=== PATIENT | male | born 1960 | race Caucasian/White ===

== ENCOUNTER 2021-07-05 08:04 | Observation (INO) | payer BC ==
[2021-07-05] MEDS ORDERED: NA CHLORIDE 0.9% 1,000 ML ONE (08:24)
[2021-07-05] MEDS ORDERED: ASPIRIN EC 81 MG TAB PO ONE (08:24)
[2021-07-05] MEDS ORDERED: LABETALOL HCL 100 MG/20 ML ONE (08:24)
[2021-07-05 08:28] LABS: Urine Blood Negative (Negative); Urine Glucose Negative (Negative); Urine Protein Negative (Negative); Urine Specific Gravity 1.015 (1.005-1.030)
[2021-07-05 08:28] LABS: Absolute Lymphocytes (CBC) 1.7 K/uL (0.7-4.9); Hematocrit 47.7 % (39.6-49.0); MPV 7.4 fL (7.6-11.3); RBC Red Blood Cell Count 5.17 M/uL (4.33-5.43)
[2021-07-05 08:35] LABS: Protime INR 0.99
--- NOTE | 2021-07-05 08:43 | RAD REPORT ---
EXAM DESCRIPTION: CT - Ct Stroke Brain Wo Cont - 07/05/2021 8:35 am CLINICAL HISTORY: NUMBNESS Headache, drowsiness, CVA symptomology COMPARISON: No comparisons TECHNIQUE: All CT scans are performed using dose optimization technique as appropriate and may inclu de automated exposure control or mA/KV adjustment according to patient size. FINDINGS: No intracranial hemorrhage, hydrocephalus or extra-axial fluid collection.No areas of brai n edema or evidence of midline shift. Beam hardening artifact from metallic foreign body along the le ft scalp noted. The paranasal sinuses and mastoids are clear. The calvarium is intact. IMPRESSION: No acute intracranial abnormality. The findings were discussed with Elicia in the ER on 07/05/2021 at 8:08 a.m. by telephone.
[2021-07-05 08:45] LABS: Magnesium 2.4 mg/dL (1.8-2.4); Potassium 3.9 mmol/L (3.5-5.1)
--- NOTE | 2021-07-05 09:21 | RAD REPORT ---
EXAM DESCRIPTION: RAD - Chest Single View - 07/05/2021 9:07 am CLINICAL HISTORY: BLUNT CHEST TRAUMA Chest pain. COMPARISON: No comparisons FINDINGS: Portable technique limits examination quality. The lungs are grossly clear. The heart is normal in size. No displaced fractures. IMPRESSION: No acute intrathoracic process suspected.
[2021-07-05 09:37] LABS: Barbiturates NEGATIVE (NEGATIVE); Benzodiazepines NEGATIVE (NEGATIVE); Cocaine NEGATIVE (NEGATIVE); METHAMPHETAM NEGATIVE (NEGATIVE); Methadone NEGATIVE (NEGATIVE); Opiates NEGATIVE (NEGATIVE); Phencyclidine NEGATIVE (NEGATIVE); THC Cannibis NEGATIVE (NEGATIVE)
--- NOTE | 2021-07-05 10:33 | ER ---
Nurse's Notes [facility] Name: Eagle Quinones Age: 61 yrs Sex: Male : 1960 Arrival Date: 07/05/2021 Time: 08:04 Bed 8 Private MD: Diagnosis: Transient cerebral ischemic attack, unspecified Presentation: 07/05 08:00 Chief complaint: EMS states: EMS called for L sided numbness, pt reports that at approx ph 0700 his L arm and L leg began to feel numb, no other deficits reported or noted, hx of HTN, BP 163/111 for EMS other VS WNL, BGL 89. Pt taken directly to CT upon arrival. Coronavirus screen: Vaccine status: Patient reports receiving the 2nd dose of the covid vaccine. At this time, the client does not indicate any symptoms associated with coronavirus-19. Ebola Screen: No symptoms or risks identified at this time. Initial Sepsis Screen: Does the patient meet any 2 criteria? No. Patient's initial sepsis screen is negative. Does the patient have a suspected source of infection? No. Patient's initial sepsis screen is negative. Risk Assessment: Do you want to hurt yourself or someone else? Patient reports no desire to harm self or others. Onset of symptoms was July 05, 2021. 08:00 Method Of Arrival: EMS: [facility] ph 08:00 Acuity: UMER 2 ph 08:17 No acute neurological deficit is noted. The patients blood glucose was checked before ph arriving to the hospital and was found to be normal. Triage Assessment: 08:38 General: Appears in no apparent distress. comfortable, Behavior is calm, cooperative, kd3 appropriate for age. 08:38 Neuro: Reports numbness since this morning. kd3 11:34 The onset of the patients symptoms was July 05, 2021 at 07:00. ph Stroke Activation: Symptom onset < 3 hours Physician: Stroke Attending; Name: ; Notified At: 07:58; Arrived At: Physician: Chief Stroke Resident; Name: ; Notified At: 07:58; Arrived At: Physician: Stroke Resident; Name: ; Notified At: 07:58; Arrived At: Physician: ED Attending; Name: Carlota; Notified At: 07:58; Arrived At: 07:58 Physician: ED Resident; Name: ; Notified At: 07:58; Arrived At: Historical: - Allergies: 08:15 No Known Allergies; ph - Home Meds: 08:15 unknown BP medication [Active]; ph - PMHx: 08:15 Hypertensive disorder; ph - Immunization history:: Client reports receiving the 2nd dose of the Covid vaccine. - Social history:: Smoking status: Patient reports the use of cigarette tobacco products, smokes one pack cigarettes per day. Screenin:18 Abuse screen: Denies threats or abuse. Denies injuries from another. Nutritional ph screening: No deficits noted. Tuberculosis screening: No symptoms or risk factors identified. Fall Risk None identified. Assessment: 08:16 Reassessment: Dr Van at bedside to assess pt, BGL 116. ph 08:33 Pain: Denies pain. Neuro: No deficits noted. Level of Consciousness is awake, alert, kd3 obeys commands, Oriented to person, place, time, situation, Hotbed Operator are equal bilaterally Moves all extremities. Gait is steady, Speech is normal, Facial symmetry appears normal, Facial symmetry: tongue is midline, Pupils are PERRLA, Intact Tingling in right hand, right foot, right arm and right leg. Cardiovascular: Patient's skin is warm and dry. Respiratory: Airway is patent Trachea midline Respiratory effort is even, unlabored. 08:35 VAN Scoring: Arm Drift: Patients demonstrates NO arm weakness. Patient is VAN Negative. ww Visual Disturbance: No visual disturbance noted. Aphasia: No aphasia noted. Neglect: No neglect noted. Patient has been NPO before screening. The patient is alert, and able to follow commands. The patient does not exhibit slurred or garbled speech. The patient is not exhibiting difficulty speaking. The patient does not exhibit difficulty understanding words. The patient is able to swallow own secretions with no drooling or need for suction. Patient tolerated one teaspoon of water. No drooling, immediate coughing, gurgling, or clearing of the throat was noted. The patient tolerated 90mL of water. No drooling, immediate coughing, gurgling, or clearing of the throat was noted. The patient passed the bedside swallow screening. Oral medications may be given as ordered. Contact Physician for further diet orders. Provider notified of bedside swallow screening results: Awilda Van MD. 08:45 Reassessment: No TPA per ER MD . 08:45 T-PA (Activase) Screening: Indications: No evidence of intracranial hemorrhage or CT of ww head and no evidence of peripheral hemorrhage or recent CVA: No. 09:32 Reassessment: Patient appears in no apparent distress at this time. Patient and/or ph family updated on plan of care and expected duration. Pain level reassessed. Patient is alert, oriented x 3, equal unlabored respirations, skin warm/dry/pink. 10:13 Reassessment: Patient appears in no apparent distress at this time. Patient and/or ph family updated on plan of care and expected duration. Pain level reassessed. Patient is alert, oriented x 3, equal unlabored respirations, skin warm/dry/pink. Dr Van at bedside to speak w/ about results, pt to be admitted for observation. 11:31 Reassessment: Patient appears in no apparent distress at this time. Patient and/or ph family updated on plan of care and expected duration. Pain level reassessed. Patient is alert, oriented x 3, equal unlabored respirations, skin warm/dry/pink. Pt resting quietly w/ eyes closed, awaiting room assignment. 16:18 Reassessment: Patient appears in no apparent distress at this time. Patient and/or ph family updated on plan of care and expected duration. Pain level reassessed. Patient is alert, oriented x 3, equal unlabored respirations, skin warm/dry/pink. Vital Signs: 08:00 BP 152 / 120; Pulse 87; Resp 20; Temp 98.4; Pulse Ox 97% on R/A; Weight 95.25 kg; ph Height 5 ft. 11 in. (180.34 cm); Pain 0/10; 08:30 BP 137 / 104; Pulse 81; Resp 18; Pulse Ox 96% on R/A; ph 08:38 BP 133 / 95; Pulse 82; Resp 14; Pulse Ox 97% on R/A; ww 09:31 BP 140 / 95; Pulse 92; Resp 18; Pulse Ox 96% on R/A; ph 10:17 BP 146 / 94; Pulse 83; Resp 16; Pulse Ox 98% on R/A; kd3 11:32 BP 135 / 90; Pulse 54; Resp 18; Pulse Ox 98% on R/A; ph 13:00 BP 129 / 93; Pulse 80; Resp 16; Pulse Ox 98% on R/A; ph 14:00 BP 104 / 81; Pulse 82; Resp 16; Pulse Ox 99% on R/A; ph 15:00 BP 146 / 68; Pulse 79; Resp 18; Pulse Ox 97% on R/A; ph 16:18 BP 138 / 100; Pulse 74; Resp 16; Temp 97.8; Pulse Ox 97% ; ph 08:00 Body Mass Index 29.29 (95.25 kg, 180.34 cm) ph Navi Coma Score: 08:15 Eye Response: spontaneous(4). Verbal Response: oriented(5). Motor Response: obeys ww commands(6). Total: 15. 08:15 Eye Response: spontaneous(4). Verbal Response: oriented(5). Motor Response: obeys ww commands(6). Total: 15. 09:31 Eye Response: spontaneous(4). Verbal Response: oriented(5). Motor Response: obeys ph commands(6). Total: 15. 11:32 Eye Response: spontaneous(4). Verbal Response: oriented(5). Motor Response: obeys ph commands(6). Total: 15. 15:00 Eye Response: spontaneous(4). Verbal Response: oriented(5). Motor Response: obeys ph commands(6). Total: 15. 16:18 Eye Response: spontaneous(4). Verbal Response: oriented(5). Motor Response: obeys ph commands(6). Total: 15. NIH Stroke Scale Scores: 08:33 NIHSS Score: 0 kd3 08:33 NIHSS Score: 0 kd3 ED Course: 08:04 Patient arrived in ED. ph 08:11 Awilda Van MD is Attending Physician. ma2 08:12 Agatha Walters RN is Primary Nurse. ph 08:15 Triage completed. ph 08:16 Arm band placed on Patient placed in an exam room, on a stretcher. ph 08:33 Patient has correct armband on for positive identification. Bed in low position. Call kd3 light in reach. Side rails up X2. unarmed security guard on. Pulse ox on. NIBP on. 08:33 Inserted saline lock: 20 gauge in right antecubital area, using aseptic technique. kd3 08:34 CT Stroke Brain w/o Contrast In Process Unspecified. EDMS 08:55 Basic Metabolic Panel Sent. ww 08:55 CBC with Diff Sent. ww 08:55 Lipase Sent. ww 09:07 Stroke CXR 1 View In Process Unspecified. EDMS 10:33 Chris Karimi is Hospitalizing Provider[facility] 11:34 No provider procedures requiring assistance completed. Patient admitted, IV remains in ph place. Administered Medications: 08:31 Drug: NS 0.9% 1000 ml Route: IV; Rate: 1 bolus; Site: right antecubital; kd3 10:00 Follow up: Response: No adverse reaction; IV Status: Completed infusion; IV Intake: ph 1000ml 08:31 Drug: Aspirin Chewable Tablet 324 mg Route: PO; kd3 11:33 Follow up: Response: No adverse reaction ph 08:31 Drug: Labetalol 10 mg Route: IVP; Infused Over: 2 mins; Site: right antecubital; kd3 09:00 Follow up: Response: No adverse reaction; Blood pressure is lowered ph Point of Care Testing: Blood Glucose: 08:14 Blood Glucose: 116 mg/dL; ph Ranges: Intake: 10:00 IV: 1000ml; Total: 1000ml. ph Outcome: 10:33 Decision to Hospitalize by Provider. [facility] 18:18 Admitted to Med/surg accompanied by tech, via wheelchair. 18:18 Condition: stable 18:18 Instructed on the need for admit. 18:19 Patient left the ED. NIH Stroke Scale - NIH Stroke Score Date: 07/05/2021 Time: 08:33 Total Score = 0 1a. Level of Consciousness (LOC) - 0(Alert) 1b. Level of Consciousness (LOC) (Month \T\ Age) - 0(Both) 1c. LOC Commands (Open \T\ Closes Eyes/Deputy Sheriff Custody) - 0(Both) 2. Best Gaze (Lateral Gaze Paresis) - 0(Normal) 3. Visual Field Loss - 0(No visual loss) 4. Facial Palsy - 0(Normal) 5a. Left Arm: Motor (10-second hold) - 0(No drift) 5b. Right Arm: Motor (10-second hold) - 0(No drift) 6a. Left Leg: Motor (5-second hold - always test supine) - 0(No drift) 6b. Right Leg: Motor (5-second hold - always test supine) - 0(No drift) 7. Limb Ataxia (finger/nose \T\ heel/jarvis - test with eyes open) - 0(Absent) 8. Sensory Loss (pinprick arms/legs/face) - 0(Normal) 9. Best Language: Aphasia (description/naming/reading) - 0(No aphasia) 10. Dysarthria (speech clarity - read or repeat words) - 0(Normal) 11. Extinction and Inattention (visual/tactile/auditory/spatial/personal) - 0(No abnormality) Initials: kd3 NIH Stroke Scale - NIH Stroke Score Date: 07/05/2021 Time: 08:33 Total Score = 0 1a. Level of Consciousness (LOC) - 0(Alert) 1b. Level of Consciousness (LOC) (Month \T\ Age) - 0(Both) 1c. LOC Commands (Open \T\ Closes Eyes/Deputy Sheriff Custody) - 0(Both) 2. Best Gaze (Lateral Gaze Paresis) - 0(Normal) 3. Visual Field Loss - 0(No visual loss) 4. Facial Palsy - 0(Normal) 5a. Left Arm: Motor (10-second hold) - 0(No drift) 5b. Right Arm: Motor (10-second hold) - 0(No drift) 6a. Left Leg: Motor (5-second hold - always test supine) - 0(No drift) 6b. Right Leg: Motor (5-second hold - always test supine) - 0(No drift) 7. Limb Ataxia (finger/nose \T\ heel/jarvis - test with eyes open) - 0(Absent) 8. Sensory Loss (pinprick arms/legs/face) - 0(Normal) 9. Best Language: Aphasia (description/naming/reading) - 0(No aphasia) 10. Dysarthria (speech clarity - read or repeat words) - 0(Normal) 11. Extinction and Inattention (visual/tactile/auditory/spatial/personal) - 0(No abnormality) Initials: kd3 Signatures: Dispatcher [employer] Agatha Penn RN RN Awilda Van MD MD wy2 Brittany Hughes RN RN 3 Freda Pino RN RN ww Corrections: (The following items were deleted from the chart) 08:16 08:15 PMHx: None; ph ph
--- NOTE | 2021-07-05 10:34 | EDPHYS ---
Physician Documentation [facility] Name: Eagle Quinones Age: 61 yrs Sex: Male : 1960 Arrival Date: 07/05/2021 Time: 08:04 Bed 8 Private MD: ED Physician Awilda Van HPI: 07/05 09:07 This 61 yrs old Male presents to ER via EMS with complaints of Numbness Of Arm. ma2 09:07 Onset: The symptoms/episode began/occurred suddenly, 1 hour(s) ago. Associated signs ma2 and symptoms: Pertinent negatives: erythema, nausea, pain, tingling. Severity of symptoms: At their worst the symptoms were very mild, in the emergency department the symptoms have resolved. 7-year-old male, history of hypertension, has not been taking his blood pressure medicine for a few days, he presents to ER for left-sided numbness involve left hand and left thigh, started an hour ago, mild, resolved completely, patient does not have any symptom at this time. Never had a stroke before.. Historical: - Allergies: 08:15 No Known Allergies; ph - Home Meds: 08:15 unknown BP medication [Active]; ph - PMHx: 08:15 Hypertensive disorder; ph - Immunization history:: Client reports receiving the 2nd dose of the Covid vaccine. - Social history:: Smoking status: Patient reports the use of cigarette tobacco products, smokes one pack cigarettes per day. ROS: 09:07 Constitutional: Negative for fever, chills, and weight loss. ma2 09:07 All other systems are negative. Exam: 09:07 Constitutional: This is a well developed, well nourished patient who is awake, alert, ma2 and in no acute distress. Chest/axilla: Normal chest wall appearance and motion. Nontender with no deformity. No lesions are appreciated. Cardiovascular: Regular rate and rhythm with a normal S1 and S2. No gallops, murmurs, or rubs. Normal PMI, no JVD. No pulse deficits. Respiratory: Lungs have equal breath sounds bilaterally, clear to auscultation and percussion. No rales, rhonchi or wheezes noted. No increased work of breathing, no retractions or nasal flaring. Abdomen/GI: Soft, non-tender, with normal bowel sounds. No distension or tympany. No guarding or rebound. No evidence of tenderness throughout. Skin: Warm, dry with normal turgor. Normal color with no rashes, no lesions, and no evidence of cellulitis. MS/ Extremity: Pulses equal, no cyanosis. Neurovascular intact. Full, normal range of motion. Neuro: Awake and alert, GCS 15, oriented to person, place, time, and situation. Cranial nerves II-XII grossly intact. Motor strength 5/5 in all extremities. Sensory grossly intact. Cerebellar exam normal. Normal gait. Vital Signs: 08:00 BP 152 / 120; Pulse 87; Resp 20; Temp 98.4; Pulse Ox 97% on R/A; Weight 95.25 kg; ph Height 5 ft. 11 in. (180.34 cm); Pain 0/10; 08:30 BP 137 / 104; Pulse 81; Resp 18; Pulse Ox 96% on R/A; ph 08:38 BP 133 / 95; Pulse 82; Resp 14; Pulse Ox 97% on R/A; ww 09:31 BP 140 / 95; Pulse 92; Resp 18; Pulse Ox 96% on R/A; ph 10:17 BP 146 / 94; Pulse 83; Resp 16; Pulse Ox 98% on R/A; kd3 11:32 BP 135 / 90; Pulse 54; Resp 18; Pulse Ox 98% on R/A; ph 13:00 BP 129 / 93; Pulse 80; Resp 16; Pulse Ox 98% on R/A; ph 14:00 BP 104 / 81; Pulse 82; Resp 16; Pulse Ox 99% on R/A; ph 15:00 BP 146 / 68; Pulse 79; Resp 18; Pulse Ox 97% on R/A; ph 16:18 BP 138 / 100; Pulse 74; Resp 16; Temp 97.8; Pulse Ox 97% ; ph 08:00 Body Mass Index 29.29 (95.25 kg, 180.34 cm) ph NIH Stroke Scale Scores: 08:33 NIHSS Score: 0 kd3 08:33 NIHSS Score: 0 kd3 [place] Coma Score: 08:15 Eye Response: spontaneous(4). Verbal Response: oriented(5). Motor Response: obeys ww commands(6). Total: 15. 08:15 Eye Response: spontaneous(4). Verbal Response: oriented(5). Motor Response: obeys ww commands(6). Total: 15. 09:31 Eye Response: spontaneous(4). Verbal Response: oriented(5). Motor Response: obeys ph commands(6). Total: 15. 11:32 Eye Response: spontaneous(4). Verbal Response: oriented(5). Motor Response: obeys ph commands(6). Total: 15. 15:00 Eye Response: spontaneous(4). Verbal Response: oriented(5). Motor Response: obeys ph commands(6). Total: 15. 16:18 Eye Response: spontaneous(4). Verbal Response: oriented(5). Motor Response: obeys ph commands(6). Total: 15. MDM: 08:11 Patient medically screened. ma2 09:20 ED course: Discussed with Dr. Jiang, agree with plan, he will consult on the patient.ma2 10:31 Differential diagnosis: Discussed with Dr. Jiang neurologist, will admit for TIA ma2 work-up. Data reviewed: vital signs, nurses notes, EMS record. Counseling: I had a detailed discussion with the patient and/or guardian regarding: the historical points, exam findings, and any diagnostic results supporting the discharge/admit diagnosis, the presence of at least one elevated blood pressure reading (>120/80) during this emergency department visit, lab results. Response to treatment: There is no appreciated change of the patient's symptoms at this time. 07/05 08:16 Order name: Basic Metabolic Panel [facility] 07/05 08:16 Order name: CBC with Diff [facility] 07/05 08:16 Order name: Lipase [facility] 07/05 08:16 Order name: Magnesium; Complete Time: 10: [facility] 07/05 08:16 Order name: Protime (+inr); Complete Time: 10: [facility] 07/05 08:16 Order name: Ptt, Activated; Complete Time: 10: [facility] 07/05 08:16 Order name: UDS; Complete Time: 10: [facility] 07/05 08:17 Order name: Basic Metabolic Panel; Complete Time: 10: [facility] 07/05 08:17 Order name: CBC with Automated Diff; Complete Time: 10: [facility] 07/05 08:17 Order name: Lipase; Complete Time: 10: EDMS 07/05 08:29 Order name: Urine Dipstick-Ancillary; Complete Time: 10:01 EDMS 07/05 09:32 Order name: Glucose, Ancillary Testing; Complete Time: 10:01 EDMS 07/05 09:32 Order name: Glucose, Ancillary Testing; Complete Time: 10:01 EDMS 07/05 10:50 Order name: COVID-19 SARS RT PCR (Document "Date of Onset" if Symptomatic); Complete bd Time: 14:08 07/05 08:16 Order name: Stroke CXR 1 View; Complete Time: 10:01 ma2 07/05 08:16 Order name: EKG; Complete Time: 08:17 ma2 07/05 08:16 Order name: Accucheck; Complete Time: 08:17 ma2 07/05 08:16 Order name: Cardiac monitoring; Complete Time: 08:17 ma2 07/05 08:16 Order name: EKG - Nurse/Tech; Complete Time: 08:21 ma2 07/05 08:16 Order name: IV Saline Lock; Complete Time: 08:17 ma2 07/05 08:16 Order name: Labs collected and sent; Complete Time: 08:17 ma2 07/05 08:16 Order name: NPO; Complete Time: 08:17 ma2 07/05 08:16 Order name: O2 Per Protocol; Complete Time: 08:17 ma2 07/05 08:16 Order name: O2 Sat Monitoring; Complete Time: 08:17 ma2 07/05 08:33 Order name: CT Stroke Brain w/o Contrast; Complete Time: 10:01 bd 07/05 10:50 Order name: Diet Heart Healthy; Complete Time: 10:50 ph 07/05 08:16 Order name: Stroke Swallow Screen; Complete Time: 08:55 ma2 Administered Medications: 08:31 Drug: NS 0.9% 1000 ml Route: IV; Rate: 1 bolus; Site: right antecubital; kd3 10:00 Follow up: Response: No adverse reaction; IV Status: Completed infusion; IV Intake: ph 1000ml 08:31 Drug: Aspirin Chewable Tablet 324 mg Route: PO; kd3 11:33 Follow up: Response: No adverse reaction ph 08:31 Drug: Labetalol 10 mg Route: IVP; Infused Over: 2 mins; Site: right antecubital; kd3 09:00 Follow up: Response: No adverse reaction; Blood pressure is lowered ph Point of Care Testing: Blood Glucose: 08:14 Blood Glucose: 116 mg/dL; ph Ranges: Critical Glucose Levels:Adult <50 mg/dl or >400 mg/dl <40 mg/dl or >180 mg/dl Disposition Summary: 07/05/21 10:33 Hospitalization Ordered Hospitalization Status: Observation ma2 Provider: Chris Karimi ma2 Location: Telemetry/MedSurg (observation) ma2 Condition: Stable ma2 Problem: new ma2 Symptoms: are unchanged ma2 Bed/Room Type: Standard dc2 Room Assignment: 205(07/05/21 16:15) ss Diagnosis - Transient cerebral ischemic attack, unspecified ma2 Forms: - Medication Reconciliation Form ma2 - SBAR form ma2 NIH Stroke Scale - NIH Stroke Score Date: 07/05/2021 Time: 08:33 Total Score = 0 1a. Level of Consciousness (LOC) - 0(Alert) 1b. Level of Consciousness (LOC) (Month \\T\\ Age) - 0(Both) 1c. LOC Commands (Open \\T\\ Closes Eyes/Conference Planning Manager) - 0(Both) 2. Best Gaze (Lateral Gaze Paresis) - 0(Normal) 3. Visual Field Loss - 0(No visual loss) 4. Facial Palsy - 0(Normal) 5a. Left Arm: Motor (10-second hold) - 0(No drift) 5b. Right Arm: Motor (10-second hold) - 0(No drift) 6a. Left Leg: Motor (5-second hold - always test supine) - 0(No drift) 6b. Right Leg: Motor (5-second hold - always test supine) - 0(No drift) 7. Limb Ataxia (finger/nose \\T\\ heel/jarvis - test with eyes open) - 0(Absent) 8. Sensory Loss (pinprick arms/legs/face) - 0(Normal) 9. Best Language: Aphasia (description/naming/reading) - 0(No aphasia) 10. Dysarthria (speech clarity - read or repeat words) - 0(Normal) 11. Extinction and Inattention (visual/tactile/auditory/spatial/personal) - 0(No abnormality) Initials: kd3 NIH Stroke Scale - NIH Stroke Score Date: 07/05/2021 Time: 08:33 Total Score = 0 1a. Level of Consciousness (LOC) - 0(Alert) 1b. Level of Consciousness (LOC) (Month \\T\\ Age) - 0(Both) 1c. LOC Commands (Open \\T\\ Closes Eyes/Conference Planning Manager) - 0(Both) 2. Best Gaze (Lateral Gaze Paresis) - 0(Normal) 3. Visual Field Loss - 0(No visual loss) 4. Facial Palsy - 0(Normal) 5a. Left Arm: Motor (10-second hold) - 0(No drift) 5b. Right Arm: Motor (10-second hold) - 0(No drift) 6a. Left Leg: Motor (5-second hold - always test supine) - 0(No drift) 6b. Right Leg: Motor (5-second hold - always test supine) - 0(No drift) 7. Limb Ataxia (finger/nose \\T\\ heel/jarvis - test with eyes open) - 0(Absent) 8. Sensory Loss (pinprick arms/legs/face) - 0(Normal) 9. Best Language: Aphasia (description/naming/reading) - 0(No aphasia) 10. Dysarthria (speech clarity - read or repeat words) - 0(Normal) 11. Extinction and Inattention (visual/tactile/auditory/spatial/personal) - 0(No abnormality) Initials: kd3 Signatures: Dispatcher [employer] Sudha Joiner RN RN Agatha Walters RN RN Awilda Van MD MD [facility] Brittany Hughes RN RN kd3 Corrections: (The following items were deleted from the chart) 08:16 08:15 PMHx: None; [facility] 16:15 10:33 ma2
--- NOTE | 2021-07-05 13:13 | P.HP ---
Certification for Inpatient Patient admitted to: Observation With expected LOS: <2 Midnights Practitioner: I am a practitioner with admitting privileges, knowledge of patient current condition, hospital course, and medical plan of care. Services: Services provided to patient in accordance with Admission requirements found in Title 42 Section 412.3 of the Code of Federal Regulations Patient History Date of Service: 07/05/21 Reason for admission: Left-sided numbness History of Present Illness: 61-year-old gentleman with a history of hypertension presented to the emergency department with a complaint of sudden left-sided numbness. Patient states he woke up with left-sided numbness. He denies any weakness, denies any visual disturbance, denies any speech problem. Work-up in the emergency department is unremarkable except severe hypertension with systolic blood pressure in the 160s. Head CT negative for acute disease, EKG shows normal sinus rhythm. Patient without symptoms during my examination in the ED. There is a concern for TIA. Patient is placed in observation for further management. Allergies No Known Allergies Allergy (Unverified 07/05/21 18:26) Home Medications: Amlodipine [Norvasc] 10 mg PO DAILY 07/05/21 Lisinopril [Zestril] 40 mg PO 07/05/21 hydroCHLOROthiazide [Hydrochlorothiazide] 12.5 mg PO 07/05/21 - Past Medical/Surgical History -: Hypertension -: None - Family History Father -: Hypertension - Social History Smoking Status: Former smoker Alcohol use: No Place of Residence: Home Review of Systems Other: Patient denies any fever or chills, denies any chest pain or abdominal pain. He denies any diarrhea or nausea or vomiting. Except as documented, all other systems reviewed and negative. Physical Examination - Physical Exam General: Alert, In no apparent distress, Oriented x3 HEENT: Atraumatic, PERRLA, Mucous membr. moist/pink, EOMI, Sclerae nonicteric Neck: Supple, 2+ carotid pulse no bruit, JVD not distended, No Thyromegaly Respiratory: Clear to auscultation bilaterally, Normal air movement Cardiovascular: No edema, Regular rate/rhythm, Normal S1 S2 Capillary refill: <2 Seconds Gastrointestinal: Normal bowel sounds, Soft and benign, Non-distended, No tenderness Musculoskeletal: No swelling, No tenderness Integumentary: No rashes, No erythema, No cyanosis Neurological: Normal speech, Normal strength at 5/5 x4 extr, Cranial nerves 3-12 intact Lymphatics: No axilla or inguinal lymphadenopathy - Studies Laboratory Data (last 24 hrs) 07/05/21 08:16: PT 11.4, INR 0.99, APTT 31.9 07/05/21 08:16: WBC 8.50, Hgb 16.3, Hct 47.7, Plt Count 228 07/05/21 08:16: Sodium 139, Potassium 3.9, BUN 13, Creatinine 0.93, Glucose 121 H, Magnesium 2.4, Lipase 62 L Assessment and Plan - Problems (Diagnosis) (1) Uncontrolled hypertension Current Visit: Yes Status: Acute (2) TIA (transient ischemic attack) Current Visit: Yes Status: Acute - Plan Place patient under observation. TIA stroke work-up with MRI of the brain, carotid Doppler and echocardiogram. Start aspirin and Lipitor Blood pressure control-continue home antihypertensives. Hydralazine as needed for BP spikes Neurochecks. - Advance Directives Does patient have a Living Will: No Does patient have a Durable POA for Healthcare: No
[2021-07-05 16:29] VITALS: BMI 29.2
[2021-07-05] MEDS ORDERED: INFLUENZA VACCINE (for 6+ mo) 0.5 ML DOSE IMVAC ONE (18:00)
[2021-07-05] MEDS ORDERED: ONDANSETRON 4 MG/2 ML VIAL IV PRN (18:27)
[2021-07-05] MEDS: NA CHLORIDE 0.9% 1,000 ML IV SCH (18:51)
[2021-07-05] MEDS: ENOXAPARIN 40 MG/0.4 ML SQ SCH (20:00)
[2021-07-05 20:10] VITALS: O2SAT 97
--- NOTE | 2021-07-05 20:37 | RAD REPORT ---
EXAM DESCRIPTION: - CP - 07/05/2021 8:20 pm CLINICAL HISTORY: TIA COMPARISON: No comparisons TECHNIQUE: Real-time sonographic evaluation of bilateral carotid and vertebral systems was performed . Ruelas scale and Doppler interrogation were performed with waveform tracing bilaterally. FINDINGS: Normal high resistance waveforms are noted in both external carotid arteries. The common c arotid arteries and internal carotid arteries show normal low resistance waveforms. Calcified and noncalcified plaquing changes are present in the bilateral carotid bulb 7 internal arango tid arteries. Visually there is no significant luminal narrowing dissection is present. Peak systolic and end diastolic velocity values and the ICA/CCA ratios are in the non-hemodynamically significant range. Vertebral arteries are not well visualized. Antegrade flow is thought to be present. Velocity values and ratios were recorded and are retained in the patient's imaging records. IMPRESSION: Mild atherosclerotic changes with no visual evidence for significant luminal narrowing. Velocity values and ratios indicate no hemodynamically significant degree of stenosis.
[2021-07-05] MEDS ORDERED: ATORVASTATIN 40 MG TAB PO SCH (21:00)
[2021-07-06 05:41] LABS: Absolute Lymphocytes (CBC) 1.9 K/uL (0.7-4.9); Hematocrit 45.8 % (39.6-49.0); Lymphocytes % 26.4 % (15.3-44.8); MPV 7.3 fL (7.6-11.3); RBC Red Blood Cell Count 4.81 M/uL (4.33-5.43)
[2021-07-06 06:08] LABS: BUN Blood Urea Nitrogen 11 mg/dL (7-18); Bicarbonate 28 mmol/L (21-32); Glucose Level 126 mg/dL (74-106); HDL Cholesterol 45 mg/dL (40-60); LDL Cholesterol, Calculated 124 (<130); Magnesium 2.3 mg/dL (1.8-2.4); Potassium 3.8 mmol/L (3.5-5.1); Sodium Level 140 mmol/L (136-145); Thyroid Stimulating Hormone 0.887 uIU/mL (0.360-3.740)
[2021-07-06] MEDS: NA CHLORIDE 0.9% 1,000 ML IV SCH (07:47)
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
[2021-07-06] MEDS: ENOXAPARIN 40 MG/0.4 ML SQ SCH ×2 (09:00→10:00)
[2021-07-06] MEDS ORDERED: KCL 20 MEQ/100 mL IVPB 20 MEQ/100 ML BAG IV SCH (09:00)
[2021-07-06] MEDS ORDERED: hydroCHLOROthiazide 12.5 MG CAP PO SCH (09:00)
[2021-07-06] MEDS ORDERED: lisinopriL 20 MG TAB PO SCH (09:00)
[2021-07-06] MEDS ORDERED: ASPIRIN EC 81 MG TAB PO SCH (09:00)
[2021-07-06] MEDS ORDERED: AMLODIPINE 10 MG TAB PO SCH (09:00)
[2021-07-06 10:01] VITALS: BP 149/97
[2021-07-06 10:07] VITALS: TEMP 98.1
--- NOTE | 2021-07-07 07:38 | EKG ---
Test Date: 2021-07-05 Test Time: 08:24:01 Material Lister: SILVINA MEASUREMENT RESULTS: Intervals: Rate: 86 WI: 138 QRSD: 94 QT: 368 QTc: 440 [place]: P: 60 WI: 138 QRS: 26 T: 41 INTERPRETIVE STATEMENTS: Sinus rhythm with occasional premature ventricular complexes Otherwise normal ECG No previous ECG available for comparison Electronically Signed On 07-07-21 07:36:05 CLAIM ADJUSTER by Darin Cueva
--- NOTE | 2021-07-07 08:20 | ECHO ---
HEIGHT: 5 ft 11 in WEIGHT: 210 lb 0 oz DATE OF STUDY: 07/06/[address]: elyse koo 2-DIMENSIONAL: YES M.MODE: YES DOPPLER: YES COLOR FLOW: YES TDS: NO PORTABLE: NO DEFINITY: NO BUBBLE STUDY: NO DIAGNOSIS: STROKE CARDIAC HISTORY: CATHERIZATION: NO SURGERY: NO PROSTHETIC VALVE: NO PACEMAKER: NO MEASUREMENTS (cm) DIASTOLIC (NORMALS) SYSTOLIC (NORMALS) IVSd 1.1 (0.6-1.2) LA Diam 3.5 (1.9-4.0) LVEF 65% LVIDd 4.7 (3.5-5.7) LVIDs 3.0 (2.0-3.5) %FS 36% LVPWd 1.1 (0.6-1.2) Ao Diam 3.4 (2.0-3.7) 2 DIMENSIONAL ASSESSMENT: RIGHT ATRIUM: NORMAL LEFT ATRIUM: NORMAL RIGHT VENTRICLE: NORMAL LEFT VENTRICLE: NORMAL TRICUSPID VALVE: NORMAL MITRAL VALVE: MITRAL ANNULAR CALCIFICATION PULMONIC VALVE: NORMAL AORTIC VALVE: NORMAL PERICARDIAL EFFUSION: NONE AORTIC ROOT: NORMAL LEFT VENTRICULAR WALL MOTION: NORMAL DOPPLER/COLOR FLOW: MILD TRICUSPID REGURGITATION. COMMENTS: MILD TRICUSPID REGURGITATION. MITRAL ANNULAR CALCIFICATION. NO VEGETATION OR THROMBUS. NORMAL LEFT VENTRICULAR SIZE AND FUNCTION. TECHNOLOGIST: Sandra PEPE
== END 2021-07-06 12:24 | disposition home or self-care (01) ==
LOC: ER 08:04 → ERHOLD 13:04 → 2ND 17:45
PROVIDERS: ADMIT Internal Medicine; ATTEND Internal Medicine
DX: I10 Essential (primary) hypertension (principal); R20.0 Anesthesia of skin; F17.210 Nicotine dependence, cigarettes, uncomplicated; Z20.822 Contact with and (suspected) exposure to COVID-19
CPT/HCPCS: 96361; 93005; 93306; 85025 ×2; 80048 ×2; 36415; 83735 ×2; 84100; 85610; 80061; 82947; 85730; 84443; 81003; 83690; 80307; 70450; 71045; 93880; 97161; 96374; 99285; U0003; J1650; J7030 ×2; G0378 ×3

== ENCOUNTER 2021-12-09 06:47 | Day surgery (SDC) | payer BC ==
[2021-12-07 15:30] LABS: SARS-CoV-2 Antigen Rapid Res Negative (Negative)
[2021-12-09] MEDS: Ringers Lactate 1,000 ML IV ONE ×2 (07:18→08:05)
[2021-12-09] MEDS ORDERED: LIDOCAINE 1% MPF 5 ML VIAL ONE (08:15)
[2021-12-09] MEDS ORDERED: propofoL 200 MG/20 ML VIAL IV ONE ×2 (08:15→08:51)
--- NOTE | 2021-12-09 09:03 | ENDO RPT ---
[address], [address] COLONOSCOPY PROCEDURE REPORT EXAM DATE: 12/09/2021 PATIENT NAME: Eagle Quinones MR #: [id number] BIRTHDATE: 1960 ATTENDING: José Luis Morrison DR STATUS: outpatient HOPPER OPERATOR: Dillon Heck and Cheryl Vega RN INDICATIONS: The patient is a 61 yr old Male here for a colonoscopy due to colon cancer screening PROCEDURE PERFORMED: Colonoscopy with biopsy - cold polypectomy MEDICATIONS: Per Anesthesia. ESTIMATED BLOOD LOSS: None CONSENT: The patient understands the risks and benefits of the procedure and understands that these risks include, but are not limited to: sedation, allergic reaction, infection, perforation and/or bleeding. Alternative means of evaluation and treatment include, among others: physical exam, x-rays, and/or surgical intervention. The patient elects to proceed with this endoscopic procedure. DESCRIPTION OF PROCEDURE: During intra-op preparation period all mechanical medical equipment was checked for proper function. Hand hygiene and appropriate measures for infection prevention was taken. Procedure, possible complications, alternatives including, but not limited to possibility of bleeding, perforation, tear, infection, sepsis, need for surgery, need for blood transfusion, were explained to the patient. After the risks, benefits and alternatives of the procedure were thoroughly explained, Informed consent was verified, confirmed and timeout was successfully executed by the treatment team. The patient was placed in the left lateral position. A digital rectal exam was performed and revealed internal hemorrhoids and A digital rectal exam was performed and revealed external hemorrhoids. After appropriate level of anesthesia, the scope was passed. The EC-[id number] ([id number]) endoscope was introduced through the anus and advanced to the cecum, which was identified by both the appendix and ileocecal valve. The quality of the prep was fair. The instrument was then slowly withdrawn as the colon was fully examined. Scope withdrawal time was 15 minutes. COLON FINDINGS: Multiple medium sized polypoid shaped semi-pedunculated polyps with friable surfaces were found in the ascending colon, descending colon, and sigmoid colon. A polypectomy was performed using snare cautery and with cold forceps. The resection was complete, the polyp tissue was completely retrieved and sent to histology. Mild diverticulosis was noted in the sigmoid colon. No bleeding was noted from the diverticulosis. Moderate sized internal and external hemorrhoids were found. Retroflexed views revealed no abnormalities. The scope was then completely withdrawn from the patient and the procedure terminated. ADVERSE EVENTS: There were no complications. IMPRESSIONS: 1. Multiple medium sized semi-pedunculated polyps were found in the ascending colon, descending colon, and sigmoid colon; polypectomy was performed using snare cautery and with cold forceps 2. Mild diverticulosis was noted in the sigmoid colon 3. Moderate sized internal and external hemorrhoids RECOMMENDATIONS: 1. avoid NSAIDS for 2 weeks 2. await biopsy results 3. fiber rich diet 4. follow-up: office 2 week(s) 5. Monitor for any evidence of rectal bleeding. 6. Supp, 1 Rectally bid 7. Monitor for any evidence of rectal bleeding. 8. hemorrhoidal hygiene 9. increase dietary water RECALL: Return in 1 year(s) for Colonoscopy, pending biopsy results. Multiple polyps [address] eSigned: José Luis Morrison DR 12/09/2021 9:03 AM cc: CPT CODES: ICD9 CODES: PATIENT NAME: Eagle Quinones MR#: [id number]
--- NOTE | 2021-12-09 09:04 | ENDO RPT ---
[address], [address] COLONOSCOPY PROCEDURE REPORT EXAM DATE: 12/09/2021 PATIENT NAME: Eagle Quinones MR #: [id number] BIRTHDATE: 1960 ATTENDING: José Luis Morrison DR STATUS: outpatient [facility] DIRECTOR: Dillon Heck and Cheryl Vega RN INDICATIONS: The patient is a 61 yr old Male here for a colonoscopy due to colon cancer screening PROCEDURE PERFORMED: Colonoscopy with biopsy - cold polypectomy MEDICATIONS: Per Anesthesia. ESTIMATED BLOOD LOSS: None CONSENT: The patient understands the risks and benefits of the procedure and understands that these risks include, but are not limited to: sedation, allergic reaction, infection, perforation and/or bleeding. Alternative means of evaluation and treatment include, among others: physical exam, x-rays, and/or surgical intervention. The patient elects to proceed with this endoscopic procedure. DESCRIPTION OF PROCEDURE: During intra-op preparation period all mechanical medical equipment was checked for proper function. Hand hygiene and appropriate measures for infection prevention was taken. Procedure, possible complications, alternatives including, but not limited to possibility of bleeding, perforation, tear, infection, sepsis, need for surgery, need for blood transfusion, were explained to the patient. After the risks, benefits and alternatives of the procedure were thoroughly explained, Informed consent was verified, confirmed and timeout was successfully executed by the treatment team. The patient was placed in the left lateral position. A digital rectal exam was performed and revealed internal hemorrhoids and A digital rectal exam was performed and revealed external hemorrhoids. After appropriate level of anesthesia, the scope was passed. The EC-[id number] ([id number]) endoscope was introduced through the anus and advanced to the cecum, which was identified by both the appendix and ileocecal valve. The quality of the prep was fair. The instrument was then slowly withdrawn as the colon was fully examined. Scope withdrawal time was 15 minutes. COLON FINDINGS: Multiple medium sized polypoid shaped semi-pedunculated polyps with friable surfaces were found in the ascending colon, descending colon, and sigmoid colon. A polypectomy was performed using snare cautery and with cold forceps. The resection was complete, the polyp tissue was completely retrieved and sent to histology. Mild diverticulosis was noted in the sigmoid colon. No bleeding was noted from the diverticulosis. Moderate sized internal and external hemorrhoids were found. Retroflexed views revealed no abnormalities. The scope was then completely withdrawn from the patient and the procedure terminated. ADVERSE EVENTS: There were no complications. IMPRESSIONS: 1. Multiple medium sized semi-pedunculated polyps were found in the ascending colon, descending colon, and sigmoid colon; polypectomy was performed using snare cautery and with cold forceps 2. Mild diverticulosis was noted in the sigmoid colon 3. Moderate sized internal and external hemorrhoids RECOMMENDATIONS: 1. avoid NSAIDS for 2 weeks 2. await biopsy results 3. fiber rich diet 4. follow-up: office 2 week(s) 5. Monitor for any evidence of rectal bleeding. 6. Supp, 1 Rectally bid 7. Monitor for any evidence of rectal bleeding. 8. hemorrhoidal hygiene 9. increase dietary water RECALL: Return in 1 year(s) for Colonoscopy, pending biopsy results. Multiple polyps [address] eSigned: José Luis Morrison DR 12/09/2021 9:03 AM cc: CPT CODES: ICD9 CODES: PATIENT NAME: Eagle Quinones MR#: [id number]
[2021-12-09] MEDS ORDERED: Phenylephrine HCl 10 MG/ML 1 ML VIAL ONE (09:16)
[2021-12-09 12:16] VITALS: BP 142/78; TEMP 97.5; O2SAT 100
[2021-12-09] MEDS ORDERED: IBUPROFEN 400 MG TAB ONE (12:28)
== END 2021-12-09 10:03 | disposition home or self-care (01) ==
LOC: OR 06:47
PROVIDERS: ATTEND Surgery
PROC: 0YU60JZ Supplement Left Inguinal Region with Synthetic Substitute, Open Approach (ICD-10-PCS; principal; 2021-12-09 08:00)
DX: K40.30 Unilateral inguinal hernia, with obstruction, without gangrene, not specified as recurrent (principal); Z20.822 Contact with and (suspected) exposure to COVID-19
CPT/HCPCS: 36415; 88305; 87811; 49507; J2704 ×2; J2370; J7120

== ENCOUNTER 2022-07-07 06:17 | Day surgery (SDC) | payer BC ==
[2022-07-04 12:01] LABS: Potassium 3.5 mmol/L (3.5-5.1)
--- NOTE | 2022-07-04 16:17 | EKG ---
Test Date: 2022-07-04 Test Time: 11:19:50 Adolescent Specialist: CAMILA MEASUREMENT RESULTS: Intervals: Rate: 64 NM: 156 QRSD: 92 QT: 406 QTc: 418 [place]: P: 72 NM: 156 QRS: 11 T: 34 INTERPRETIVE STATEMENTS: Normal sinus rhythm Normal ECG Compared to ECG 07/05/2021 08:24:01 Ventricular premature complex(es) no longer present Electronically Signed On 07-04-22 16:16:30 DECORATING EQUIPMENT SETTER by Olegario Sanches
[2022-07-07] MEDS ORDERED: Ringers Lactate 1,000 ML IV ONE (06:46)
[2022-07-07] MEDS ORDERED: propofoL 200 MG/20 ML VIAL IV ONE ×3 (07:23→08:14)
[2022-07-07] MEDS ORDERED: LIDOCAINE 1% MPF 5 ML VIAL ONE (07:23)
[2022-07-07 08:33] VITALS: O2SAT 99
[2022-07-07 08:52] VITALS: BP 138/84; TEMP 97.7
== END 2022-07-07 08:45 | disposition home or self-care (01) ==
LOC: OR 06:17
PROVIDERS: ATTEND Surgery
PROC: 0DBN8ZX Excision of Sigmoid Colon, Via Natural or Artificial Opening Endoscopic, Diagnostic (ICD-10-PCS; 2022-07-07)
PROC: 0DBP8ZX Excision of Rectum, Via Natural or Artificial Opening Endoscopic, Diagnostic (ICD-10-PCS; 2022-07-07)
PROC: 0DBM8ZX Excision of Descending Colon, Via Natural or Artificial Opening Endoscopic, Diagnostic (ICD-10-PCS; principal; 2022-07-07 07:30)
DX: Z12.11 Encounter for screening for malignant neoplasm of colon (principal); Z86.010 Personal history of colon polyps; D12.7 Benign neoplasm of rectosigmoid junction; D12.4 Benign neoplasm of descending colon; D12.5 Benign neoplasm of sigmoid colon
CPT/HCPCS: 45380; 45385; 93005; 80048; 36415; 88305; J2704 ×2; J2001; J7120

== ENCOUNTER 2023-03-18 22:57 | Emergency (ER) | payer BC ==
--- OUTSIDE RECORDS SUMMARY | 2023-03-18 23:02 | XMS REPORT | Continuity of Care Document ---
:1960 Author Organization [facility] t Address [address] [facility] [address] [place] [id number] Care Team Providers Name Role Phone Chacorta Anthony MD Primary Care Physician Chacorta Anthony MD Attending Clinician Lab, Alfonso Cbc Attending Clinician Unavailable CHACORTA ANTHONY Attending Clinician Unavailable Michelle Hayden Attending Clinician Michelle Hayden Admitting Clinician Payers Payer Name Policy Type Policy Number Effective Date Expiration Date S ource Problems Condition Condition Condition Status Onset Resolution Last Treating Co mments Source Name Details Category Date Date Treatment Clinician Date Essential Essential Disease Active Uni vers hypertensi hypertensi 6-21 it y of on on 00:00: [address] Smoking Smoking Disease Active Univers 6-21 ity of 00:00: [address] HYPERTENSI HYPERTENS Diagnosis Active 2016-08-21 Memoria VE LULU 4-03 21:51:00 l EMERGENCY EMERGENCY 00:00: Herm kiko Active 00 08/14/2016 Tresa Little Hypertensi Problem Resolve 2016-08-18 Memoria ve Hypertensi d 03:16:04 l disorder, ve [place] systemic disorder, arterial systemic (disorder) arterial (disorder) Resolved Problem 08/18/2016 Fabi Allergies, Adverse Reactions, Alerts Allergy Allergy Status Severity Reaction(s) Onset Inactive Treating Comm ents Source Name Type Date Date Clinician Statins- Propensi Active Other - See 2018-05 Jaw U nivers Hmg-Coa ty to comments 2-19 started ity of [place] adverse 00:00: hurting. [place] e reaction 00 He Medical Inhibito s stopped Branch rs the medicatio n and symptoms improved STATINS- Drug Active Other-Cmnt 2018-05 Univ ers HMG-COA Class 2-19 ity of REDUCTAS 00:00: [place] E 00 Medical INHIBITO Branch RS Social History Social Habit Start Date Stop Date Quantity Comments Source History of tobacco Cigarette Smoker University of use [place] [facility] History SDOH University o f Alcohol Frequency [facility] edical Branch History SDOH University o f Alcohol Std Drinks [place] [facility] History SDSC University o f Alcohol Binge [place] [facility] Exposure to Not sure [place] of SARS-CoV-2 (event) [facility] Alcohol intake 2021 2021 Current drinker Unive rsity of 00:00:00 00:00:00 of alcohol [facility] (finding) Branch Cigarettes smoked 2018-11-01 2018-11-01 Univers ity of current (pack per 00:00:00 00:00:00 [facility]) - Reported Branch Tobacco use and 2018-11-01 2018-11-01 Never used Universit y of exposure 00:00:00 00:00:00 [facility] Alcohol Comment 2018-11-01 2018-11-01 occasional glass Uni versity of 00:00:00 00:00:00 of white wine [facility] al Branch Sex Ass[birth year] At [birth year] Universit y of 00:00:00 00:00:00 [facility] Smoking Status Start Date Stop Date Source Current some day smoker 2018-11-01 00:00:00 Univ ersity of [facility] Social History 2016-08-14 22:14:36 [facility] Medications Ordered Filled Start Stop Current Ordering Indication Dosage Frequency Signature Comments Components Source Medication Medication Date Date Medication? Clinician (SIG) Name Name HYDROCHLORO Yes [id number] Take 1 Univers THIAZIDE 4-11 capsule by ity o f 12.5 mg 00:00: mouth [place] capsule 00 daily [place] Branch LISINOPRIL Yes [id number] Take 1 U nivers 40 mg 4-05 tablet by ity of tablet 00:00: mouth once [place] 00 daily Medical Branch AMLODIPINE Yes [id number] Take 1 U nivers 10 mg 4-05 tablet by ity of tablet 00:00: mouth once [place] 00 daily Medical Branch sildenafiL 0 Yes [id number] 100mg Take 1 Univers (VIAGRA) 9-13 tablet by ity of 100 mg 00:00: mouth as [place] tablet 00 needed Medical (take one Branch tab one hour before planned sexual activity). sildenafiL Yes [id number] 100mg Take 1 Univers (VIAGRA) 9-13 tablet by ity of 100 mg 00:00: mouth as [place] tablet 00 needed Medical (take one Branch tab one hour before planned sexual activity). ezetimibe Yes [id number] 10mg Take 1 U nivers 10 mg 3-10 tablet by ity of tablet 00:00: mouth [place] 00 daily. Medical Branch amLODIPine Yes [id number] 10mg Take 1 U nivers 10 mg 3-10 tablet by ity of tablet 00:00: mouth [place] 00 daily. Medical Branch lisinopriL Yes [id number] 40mg Take 1 U nivers 40 mg 3-10 tablet by ity of tablet 00:00: mouth [place] 00 daily. Medical Branch hydroCHLORO Yes [id number] 12.5mg Take 1 Univers thiazide 3-10 capsule by ity o f 12.5 mg 00:00: mouth [place] capsule 00 daily. Medical Branch ezetimibe Yes [id number] 10mg Take 1 U nivers 10 mg 3-10 tablet by ity of tablet 00:00: mouth [place] 00 daily. Medical Branch hydroCHLORO 2021- No [id number] 12.5mg Take 1 Univers thiazide 3-10 04-11 capsule by ity of 12.5 mg 00:00: 00:00 mouth [place] capsule 00 :00 daily. Medical Branch amLODIPine 0 2021- No [id number] 10mg Take 1 Univers 10 mg 3-10 04-05 tablet by ity of tablet 00:00: 00:00 mouth [place] 00 :00 daily. Medical Branch lisinopriL 0 2021- No [id number] 40mg Take 1 Univers 40 mg 3-10 04-05 tablet by ity of tablet 00:00: 00:00 mouth [place] 00 :00 daily. Medical Branch Lisinopril No Notes: Memor ia 4-04 (Same as: l 17:45: Prinivil, [place] 00 Zestril) lisinopril Yes 20 mg = 1 Me moria 20 mg oral 4-04 tab, PO, l tablet 17:44: Daily, # [place] 00 90 tab, 0 Refill(s) amLODIPine Yes 10 mg = 1 Me moria 10 mg oral 4-04 tab, PO, l tablet 17:44: Daily, # [place] 00 90 tab, 0 Refill(s) Saline No Notes: Memoria Flush 0.9% 08-15 (Same as: l 02:00: BD [place] Posiflush) Bystolic No Notes: Memoria 4-03 (same as: l 23:19: Bystolic) lisinopril No Notes: Memor ia 4-03 (Same as: l 23:18: Prinivil, [place] Zestril) Bystolic No 5 mg, Memoria 4-03 Route: PO, l 23:12: Daily, Dosing Weight 88.8, kg, Priority: STAT, Start date: 08/14/16 18:12:00 CDT, Duration: 30 day, Stop date: 09/13/16 9:00:00 CDT Lisinopril No 5 mg, Memori a 4- Route: PO, l 23:11: Q12H, Dosing Weight 88.8, kg, Priority: STAT, Start date: 08/14/16 18:11:00 CDT, Duration: 30 day, Stop date: 09/13/16 9:00:00 CDT Norvasc No Notes: Memoria 4- (Same as: l 22:10: Norvasc) niCARdipine No Notes: Alber nikki 40 mg/ NS 08-14 Same as: l 200 ml IV 21:20: Cardene Brunilda nn Soln 00 Concentrat (premix) 40 ion: (0.2 mg mg /1 ml ) Saline No Notes: Memoria Flush 0.9% 08-14 (Same as: l 21:18: BD [place] 00 Posiflush) Nystatin No Notes: Memoria 100 UNT/MG -03 (Same l Topical 21:18: as:Mycosta Herm kiko Powder 00 tin, Nilstat) For external use only. Vital Signs Vital Name Observation Time Observation Value Comments Source Diastolic (mm Hg) 2016-08-15 20:00:00 Mem orial [place] Respitory Rate 2016-08-15 20:00:00 Memori al [place] Systolic (mm Hg) 2016-08-15 20:00:00 Alber rial [place] Respitory Rate 2016-08-15 19:00:00 Memori al [place] Systolic (mm Hg) 2016-08-15 19:00:00 Alber rial [place] Diastolic (mm Hg) 2016-08-15 19:00:00 Mem orial [place] Systolic (mm Hg) 2016-08-15 18:30:00 Alber rial [place] Diastolic (mm Hg) 2016-08-15 18:30:00 Mem orial [place] Respitory Rate 2016-08-15 18:30:00 Memori al [place] Temperature Oral (F) 2016-08-15 17:00:00 98.3 F Memorial [place] Temperature Oral (F) 2016-08-15 13:00:00 98.2 F Memorial [place] Temperature Oral (F) 2016-08-15 09:00:00 98.0 F [facility] [place] BMI Calculated 2016-08-15 05:24:00 Memori al [place] Weight 2016-08-15 05:24:00 Memorial [place] Height 2016-08-15 05:24:00 180.34 cm Memorial [place] BMI Calculated 2016-08-14 22:49:00 Memori al [place] Height 2016-08-14 22:49:00 181.61 cm Memorial [place] Weight 2016-08-14 22:49:00 [facility] [place] Weight 2016-08-14 22:06:00 [facility] [place] BMI Calculated 2016-08-14 22:06:00 Memori al [place] Height 2016-08-14 22:06:00 181.61 cm [facility] [place] Procedures Procedure Date / Time Performed Performing Clinician [facility] e BASIC METABOLIC PANEL 2021 19:11:00 Chacorta Anthony [facility] (NA, K, CL, CO2, Medical Branch GLUCOSE, BUN, CREATININE, CA) Encounters Start End Encounter Admission Attending Care Care Encounter Source Date/Time Date/Time Type Type Clinicians Facility Department ID 2021-08-13 2021-08-13 Refill Jitendra [facility] [id number] Univers 00:00:00 00:00:00 Chacorta HEALTH [id number] it y of [place] [id number] [facility] [id number] [facility] PRIMARY & 231 Branch SPECIALTY CARE 2021 2021 [facility], [facility] [id number] Univers 14:04:18 14:19:18 Visit Jitendra Chacorta HEALTH [id number] ity of [place] [id number] [facility] [id number] [facility] Primary & 357 Branch Specialty Care 2021 2021 [facility], [facility] [id number] Univers 14:04:18 14:19:18 Visit Jitendra Chacorta HEALTH [id number] ity of [place] [id number] [facility] [id number] [facility] Primary & 357 Branch Specialty Care 2021 2021 Office Jitendra [facility] [id number] Univers 13:19:32 14:01:58 Visit Chacorta HEALTH [id number] it y of [place] 4.2.7.2.686 [facility] [id number] [facility] Primary & 231 Branch Specialty Care 2021 2021 Outpatient Kendrick [facility]ONY [facility] [id number] Univers 14:00:00 14:00:00 CHACORTA ity of [facility] 2020-07-21 2020-07-21 Outpatient Kendrick ANTHONY [facility] [id number] Univers 14:00:00 14:00:00 CHACORTA ity [facility] 2019-10-30 2019-10-30 Outpatient Kendrick ANTHONY [facility] [id number] Univers 07:40:00 07:40:00 CHACORTA ity of [place] [facility] 2016-08-14 2016-08-15 Inpatient [facility] [id number] Memoria 21:02:00 20:00:00 r [place] 93 l [facility] 2016-08-14 2016-08-15 Outpatient CHERYLE Hayden [facility] [id number] 16:02:00 15:00:00 Michelle 93 Crystal Results Test Description Test Time Test Comments Results Result Comments Source BASIC METABOLIC PANEL (NA, K, CL, CO2, GLUCOSE, BUN, 2021-01 02:56:55 CREATININE, CA) Test Item Value Reference Range Interpretation Comme nts NA (test code = 4330620325) 141 mmol/L 135-145 K (test code = 4142251571) 4.4 mmol/L 3.5-5.0 CL (test code = 6201267663) 105 mmol/L 98-108 CO2 TOTAL (test code = 30 mmol/L 23-31 9685393483) AGAP (test code = 1182748023) 2-16 BUN (test code = 2402322651) 14 mg/dL 7-23 GLUCOSE (test code = 3915642971) 84 mg/dL 70-110 CREATININE (test code = 0.75 mg/dL 0.60-1.25 4192509407) CALCIUM (test code = 3543657108) 9.9 mg/dL 8.6-10.6 eGFR (test code = 4178466750) mL/min/1.73m2 RUDDY (test code = RUDDY) Association of Glomerular Filtration Rate (GFR) and Staging of Kidney Disease* + +--------- + ----+| GFR (mL/min/1.73 m2) ?| With Kidney Damage ?| ?Without Kidney Damage+ +--- + +| ?>90 ?| ?Stage one ?| ? Normal ?+ +-------- + -----+| ?60-89 ?| ?Stage two ?| ? Decreased GFR ? + +--------- + ----+| ?30-59 ?| ?Stage three ?| ? Stage three ? + +--------- + ----+| ?15-29 ?| ?Stage four ? | ? Stage four ?+ +-------- + -----+| ?<15 (or dialysis) ? ?| ?Stage five ? | ? Stage five ?+ +-------- + -----+ *Each stage assumes the associated GFR level has been in effect for at least three months. ?Stages 1 to 5, with or without kidney disease, indicate chronic kidney disease. Notes: Determination of stages one and two (with eGFR >59mL/min/1.73 m2) requires estimation of kidney damage for at least three months as defined by structural or functional abnormalities of the kidney, manifested by either:Pathological abnormalities or Markers of kidney damage (including abnormalities in the composition of the blood or urine or abnormalities in imaging tests). [facility]00 Test Item Value Reference Range Interpretation Comments Monocytes (test code = Monocytes) 7.7 2.0-12.0 [place] [facility]ANJPFEFXE0694-59-19 09:41:00 Test Item Value Reference Range Interpretation Comments Lymphocytes (test code = Lymphocytes) 24.0 20.0-40.0 [place] [facility] [id number] 09:41:00 Test Item Value Reference Range Interpretation Comments Segs-Bands # (test code = Segs-Bands #) 6.2 1.5-8.1 [place] [facility] [id number] 09:41:00 Test Item Value Reference Range Interpretation Comments Lymphocytes # (test code = Lymphocytes 2.3 1.0-5.5 #) [facility] [id number] 09:41:00 Test Item Value Reference Range Interpretation Comments Segs (test code = Segs) 64.7 45.0-75.0 [facility]2017-04-04 09:41:00 Test Item Value Reference Range Interpretation Comments Phosphorus (test code = Phosphorus) 3.6 2.5-4.5 [facility]2017-04-04 09:41:00 Test Item Value Reference Range Interpretation Comments Magnesium Lvl (test code = Magnesium 2.3 1.8-2.4 Lvl) [facility]2017-04-04 09:41:00 Test Item Value Reference Range Interpretation Comments B/C Ratio (test code = B/C Ratio) 18 6-25 [facility]2017-04-04 09:41:00 Test Item Value Reference Range Interpretation Comments AGAP (test code = AGAP) 10.0 10.0-20.0 [facility]2017-04-04 09:41:00 Test Item Value Reference Range Interpretation Comments A/G Ratio (test code = A/G Ratio) 1.2 0.7-1.6 [facility]2017-04-04 09:41:00 Test Item Value Reference Range Interpretation Comments Globulin (test code = Globulin) 3.1 2.7-4.2 [facility]2017-04-04 09:41:00 Test Item Value Reference Range Interpretation Comments eGFR (test code = eGFR) 104 [facility]2017-04-04 09:41:00 Test Item Value Reference Range Interpretation Comments ASPARTATE TRANSAMINASE (test code = 8 <=37 ASPARTATE TRANSAMINASE) [facility]2017-04-04 09:41:00 Test Item Value Reference Range Interpretation Comments Sodium Lvl (test code = Sodium Lvl) 144 135-145 [facility]2017-04-04 09:41:00 Test Item Value Reference Range Interpretation Comments Creatinine Lvl (test code = Creatinine 0.73 0.50-1.40 Lvl) [facility]2017-04-04 09:41:00 Test Item Value Reference Range Interpretation Comments Bili Total (test code = Bili Total) 0.5 0.2-1.3 [facility]2017-04-04 09:41:00 Test Item Value Reference Range Interpretation Comments Calcium Lvl (test code = Calcium Lvl) 9.0 8.5-10.5 [facility]2017-04-04 09:41:00 Test Item Value Reference Range Interpretation Comments CO2 (test code = CO2) 30 24-32 [facility]2017-04-04 09:41:00 Test Item Value Reference Range Interpretation Comments Chloride Lvl (test code = Chloride Lvl) 108 95-109 [facility]2017-04-04 09:41:00 Test Item Value Reference Range Interpretation Comments Potassium Lvl (test code = Potassium 4.0 3.5-5.1 Lvl) [facility]2017-04-04 09:41:00 Test Item Value Reference Range Interpretation Comments Total Protein (test code = Total 6.7 6.4-8.4 Protein) [facility]2017-04-04 09:41:00 Test Item Value Reference Range Interpretation Comments BUN (test code = BUN) 13 7-22 [facility]2017-04-04 09:41:00 Test Item Value Reference Range Interpretation Comments Glucose Lvl (test code = Glucose Lvl) 105 70-99 [facility]2017-04-04 09:41:00 Test Item Value Reference Range Interpretation Comments ALANINE AMINOTRANSFERASE (test code = 18 <=65 ALANINE AMINOTRANSFERASE) [facility]2017-04-04 09:41:00 Test Item Value Reference Range Interpretation Comments Albumin Lvl (test code = Albumin Lvl) 3.6 3.5-5.0 [facility]2017-04-04 09:41:00 Test Item Value Reference Range Interpretation Comments Alk Phos (test code = Alk Phos) 59 39-136 [facility] WorthCahddcvRKWSSDCESW9373-14-58 09:41:00 Test Item Value Reference Range Interpretation Comments MPV (test code = MPV) 8.2 7.4-10.4 [facility] WorthJsqfobtYEFIOTAHWF0379-14-32 09:41:00 Test Item Value Reference Range Interpretation Comments Platelet (test code = Platelet) 184 133-450 [facility] WorthKabxhoiJRWMNDRNBX5641-23-43 09:41:00 Test Item Value Reference Range Interpretation Comments RDW (test code = RDW) 13.5 11.5-14.5 [facility] WorthAgstutiNSOXAXOAWM9875-24-89 09:41:00 Test Item Value Reference Range Interpretation Comments MCH (test code = MCH) 31.6 pg 27.0-31.0 [facility] WorthKgjdnmkHRTZJHVNOG0717-50-38 09:41:00 Test Item Value Reference Range Interpretation Comments MCHC (test code = MCHC) 34.0 32.0-36.0 [facility] WorthLeviutqOYNBTULKJH1576-78-98 09:41:00 Test Item Value Reference Range Interpretation Comments Hct (test code = Hct) 46.3 42.0-54.0 [facility] WorthZysqfinVRZGCWUGGN7073-05-52 09:41:00 Test Item Value Reference Range Interpretation Comments MCV (test code = MCV) 92.8 80.0-94.0 [facility] WorthGbnlsfbPBTQJPZJQD1334-83-64 09:41:00 Test Item Value Reference Range Interpretation Comments RBC X 10x6 (test code = RBC X 10x6) 4.99 4.70-6.10 [facility] WorthSsakuloMSJDZMLHQP1745-11-62 09:41:00 Test Item Value Reference Range Interpretation Comments WBC X 10x3 (test code = WBC X 10x3) 9.6 3.7-10.4 [facility] WorthIwhackxQMACIGWQWC4798-67-02 09:41:00 Test Item Value Reference Range Interpretation Comments Hgb (test code = Hgb) 15.8 14.0-18.0 [facility] WorthFzgzcheOQRRHCSHGV9854-79-56 09:41:00 Test Item Value Reference Range Interpretation Comments Monocytes # (test code = Monocytes #) 0.7 <=0.8 [facility] WorthCgoqhqfPIFQSOMWYM6516-11-39 09:41:00 Test Item Value Reference Range Interpretation Comments Eosinophils # (test code = Eosinophils 0.3 <=0.5 #) [facility] [id number] 09:41:00 Test Item Value Reference Range Interpretation Comments Basophils # (test code = Basophils #) 0.1 <=0.2 [facility] WorthKwhtmwdEGWQEPXQWL6380-96-74 09:41:00 Test Item Value Reference Range Interpretation Comments Eosinophils (test code = Eosinophils) 2.7 <=4.0 [facility] [id number] 09:41:00 Test Item Value Reference Range Interpretation Comments Basophils (test code = Basophils) 0.9 <=1.0 [facility] AND [id number] 22:43:00 Test Item Value Reference Range Interpretation Comments UA Bacteria (test code = UA Occasional /HPF Bacteria) [facility] AND [id number] 22:43:00 Test Item Value Reference Range Interpretation Comments UA WBC (test code = UA WBC) 0-2 /HPF [facility] AND [id number] 22:43:00 Test Item Value Reference Range Interpretation Comments UA RBC (test code = UA RBC) 0-2 /HPF <=2 [facility] AND [id number] 22:43:00 Test Item Value Reference Range Interpretation Comments UA Sq Epi (test code = UA Sq Occasional /LPF Epi) [facility] AND [id number] 22:43:00 Test Item Value Reference Range Interpretation Comments UA Glucose (test code Negative (08/14/16 5:43 = UA Glucose) PM) [facility] AND [id number] 22:43:00 Test Item Value Reference Range Interpretation Comments UA Protein (test code Negative (08/14/16 5:43 = UA Protein) PM) [facility] AND [id number] 22:43:00 Test Item Value Reference Range Interpretation Comments UA Blood (test code = Trace *ABN*(08/14/16 UA Blood) 5:43 PM) [facility] AND [id number] 22:43:00 Test Item Value Reference Range Interpretation Comments UA Bili (test code = Negative *NA*(08/14/16 UA Bili) 5:43 PM) [facility] AND [id number] 22:43:00 Test Item Value Reference Range Interpretation Comments UA Ketones (test code Negative *NA*(08/14/16 = UA Ketones) 5:43 PM) [facility] AND [id number] 22:43:00 Test Item Value Reference Range Interpretation Comments UA Urobilinogen (test code = UA 0.2 0.1-1.0 Urobilinogen) [facility] AND [id number] 22:43:00 Test Item Value Reference Range Interpretation Comments UA Leuk Est (test Negative (08/14/16 5:43 code = UA Leuk Est) PM) [facility] AND [id number] 22:43:00 Test Item Value Reference Range Interpretation Comments UA Nitrite (test code Negative (08/14/16 5:43 = UA Nitrite) PM) [facility] AND [id number] 22:43:00 Test Item Value Reference Range Interpretation Comments UA pH (test code = UA pH) 7.0 1 5.0-8.0 [facility] AND [id number] 22:43:00 Test Item Value Reference Range Interpretation Comments UA Spec Grav (test code = UA Spec 1.010 1 Grav) [facility] AND [id number] 22:43:00 Test Item Value Reference Range Interpretation Comments UA Turbidity (test code = Clear (08/14/16 5:43 UA Turbidity) PM) [facility] AND [id number] 22:43:00 Test Item Value Reference Range Interpretation Comments UA Color (test code = Yellow *NA*(08/14/16 5:43 UA Color) PM) [facility]2017-04-03 21:34:00 Test Item Value Reference Range Interpretation Comments Creatinine Lvl (test code = Creatinine 0.80 0.50-1.40 Lvl) [facility]2017-04-03 21:34:00 Test Item Value Reference Range Interpretation Comments BUN (test code = BUN) 11 7-22 [facility]2017-04-03 21:34:00 Test Item Value Reference Range Interpretation Comments Chloride Lvl (test code = Chloride Lvl) 105 95-109 [facility]2017-04-03 21:34:00 Test Item Value Reference Range Interpretation Comments Potassium Lvl (test code = Potassium 3.7 3.5-5.1 Lvl) [facility]2017-04-03 21:34:00 Test Item Value Reference Range Interpretation Comments ALANINE AMINOTRANSFERASE (test code = 18 <=65 ALANINE AMINOTRANSFERASE) [facility]2017-04-03 21:34:00 Test Item Value Reference Range Interpretation Comments eGFR (test code = eGFR) 101 [facility]2017-04-03 21:34:00 Test Item Value Reference Range Interpretation Comments Globulin (test code = Globulin) 3.2 2.7-4.2 [facility]2017-04-03 21:34:00 Test Item Value Reference Range Interpretation Comments A/G Ratio (test code = A/G Ratio) 1.2 0.7-1.6 [facility]2017-04-03 21:34:00 Test Item Value Reference Range Interpretation Comments Sodium Lvl (test code = Sodium Lvl) 142 135-145 [facility]2017-04-03 21:34:00 Test Item Value Reference Range Interpretation Comments Glucose Lvl (test code = Glucose Lvl) 88 70-99 [facility]2017-04-03 21:34:00 Test Item Value Reference Range Interpretation Comments Alk Phos (test code = Alk Phos) 63 39-136 [facility]2017-04-03 21:34:00 Test Item Value Reference Range Interpretation Comments Albumin Lvl (test code = Albumin Lvl) 4.0 3.5-5.0 [facility]2017-04-03 21:34:00 Test Item Value Reference Range Interpretation Comments Calcium Lvl (test code = Calcium Lvl) 9.2 8.5-10.5 [facility] [id number] 21:34:00 Test Item Value Reference Range Interpretation Comments CO2 (test code = CO2) 30 -32 [facility] [id number] 21:34:00 Test Item Value Reference Range Interpretation Comments Bili Total (test code = Bili Total) 0.5 0.2-1.3 [facility]2017-04-03 21:34:00 Test Item Value Reference Range Interpretation Comments B/C Ratio (test code = B/C Ratio) 14 6-25 [facility] [id number] 21:34:00 Test Item Value Reference Range Interpretation Comments Total Protein (test code = Total 7.2 6.4-8.4 Protein) [facility] [id number] 21:34:00 Test Item Value Reference Range Interpretation Comments AGAP (test code = AGAP) 10.7 10.0-20.0 [facility]2017-04-03 21:34:00 Test Item Value Reference Range Interpretation Comments ASPARTATE TRANSAMINASE (test code = 7 <=37 ASPARTATE TRANSAMINASE) [facility] [id number] 21:34:00 Test Item Value Reference Range Interpretation Comments Magnesium Lvl (test code = Magnesium 2.2 1.8-2.4 Lvl) [facility] [id number] 21:34:00 Test Item Value Reference Range Interpretation Comments Phosphorus (test code = Phosphorus) 3.1 2.5-4.5 [facility] [id number] 21:32:00 Test Item Value Reference Range Interpretation Comments MRSA by PCR (test Negative (08/14/16 4:32 code = MRSA by PCR) PM) [facility]"
[2023-03-18] MEDS ORDERED: METOCLOPRAMIDE 10 MG/2mL INJ ONE (23:49)
[2023-03-18] MEDS ORDERED: KETOROLAC 30 MG/ML INJ ONE (23:49)
[2023-03-18] MEDS ORDERED: NA CHLORIDE 0.9% 1,000 ML ONE (23:50)
[2023-03-19 00:03] LABS: Hematocrit 44.2 % (39.6-49.0); Lymphocytes % 21.7 % (15.3-44.8); MCV 92.3 fL (80-100); MPV 7.8 fL (7.6-11.3); Platelets 209 thou/uL (152-406); RBC Red Blood Cell Count 4.79 M/uL (4.33-5.43)
[2023-03-19 00:25] LABS: Albumin 4.2 g/dL (3.4-5.0); Bilirubin Total 0.8 mg/dL (0.2-1.0); Potassium 3.4 mEq/L (3.5-5.1); Protein, Total 7.5 g/dL (6.4-8.2)
--- NOTE | 2023-03-19 02:06 | ER ---
Nurse's Notes [facility] Name: Jon Quinones Age: 63 yrs Sex: Male : 1960 Arrival Date: 03/18/2023 Time: 22:57 Bed 6 Private MD: Diagnosis: Unspecified hemorrhoids;external hemorrhoids ;Anal and rectal pain secondary to hemorrhoids Presentation: 03/18 23:10 Chief complaint: Severe hemorrhoid pain with scant bright red rectal bleeding that hb started yesterday. Coronavirus screen: At this time, the client does not indicate any symptoms associated with coronavirus-19. Ebola Screen: No symptoms or risks identified at this time. Initial Sepsis Screen: Does the patient meet any 2 criteria? No. Patient's initial sepsis screen is negative. Does the patient have a suspected source of infection? No. Patient's initial sepsis screen is negative. Risk Assessment: Do you want to hurt yourself or someone else? Patient reports no desire to harm self or others. Onset of symptoms was March 17, 2023. 23:10 Method Of Arrival: Ambulatory hb 23:10 Acuity: UMER 3 hb Triage Assessment: 03/19 03:02 General: Behavior is calm, cooperative, appropriate for age. la4 Historical: - Allergies: 03/18 23:12 No Known Allergies; hb - Home Meds: 23:12 unknown BP medication [Active]; hb - PMHx: 23:12 Hypertensive disorder; hb - Immunization history:: Adult Immunizations up to date. - Social history:: Smoking status: Patient denies any tobacco usage or history of. - Family history:: not pertinent. Screenin:59 [facility] ED Fall Risk Assessment (Adult) History of falling in the last 3 months, la4 including since admission No falls in past 3 months (0 pts) Confusion or Disorientation No (0 pts) Intoxicated or Sedated Yes (3 pts) Impaired Gait Yes (1 pt) Mobility Assist Device Used Yes (1 pt) Altered Elimination No (0 pt) Score/Fall Risk Level 0 - 2 = Low Risk Oriented to surroundings, Maintained a safe environment, Provided non-skid footwear. Abuse screen: Denies threats or abuse. Denies injuries from another. Nutritional screening: No deficits noted. Tuberculosis screening: No symptoms or risk factors identified. Assessment: 23:47 General: Appears uncomfortable. Pain: Complains of pain in gluteal cleft Pain does not la4 radiate. Pain currently is 10 out of 10 on a pain scale. Quality of pain is described as pressure, sharp, Alleviated by nothing. Cardiovascular: No deficits noted. Heart tones S1 S2 Capillary refill < 3 seconds is brisk Rhythm is sinus rhythm Chest pain is denied. Respiratory: Airway is patent Breath sounds are clear bilaterally. GI: large hemorrhoid noted in the rectum that is red and causing pressure in the rectum. : No deficits noted. Vital Signs: 23:10 BP 147 / 107; Pulse 105; Resp 16; Temp 99.6(TE); Pulse Ox 99% on R/A; Weight 83.91 kg; hb Height 5 ft. 11 in. ; Pain 10/10; 23:56 BP 150 / 104; Pulse 22; Resp 88; Pulse Ox 100% on R/A; Pain 10/10; la4 03/19 00:21 BP 163 / 113; Pulse 84; Resp 16; Pulse Ox 98% on R/A; km8 03/18 23:10 Body Mass Index 25.80 (83.91 kg, 180.34 cm) hb 03/18 23:10 Pain Scale: Adult hb 23:56 Pain Scale: Adult la4 03/18 23:56 c/o rectal pain la4 Vitals: 23:56 Cardiac Rhythm Assessment Regular Sinus rhythm. Cardiac Rhythm Assessment. la4 Navi Coma Score: 23:56 Eye Response: spontaneous(4). Motor Response: obeys commands(6). Verbal Response: la4 oriented(5). Total: 15. ED Course: 22:59 Patient arrived in ED. jj6 23:02 Paul Grey MD is Attending Physician. sp4 23:12 Triage completed. hb 23:12 Arm band placed on. hb 23:33 Vane Carlson, MICHELLE is Primary Nurse. km8 23:46 CMP Sent. la4 23:46 CBC with Diff Sent. la4 23:47 Awaiting lab results. la4 23:47 Patient has correct armband on for positive identification. Placed in gown. Bed in low la4 position. Call light in reach. Side rails up X2. Provided Education on: notified of plan of care. 23:47 No provider procedures requiring assistance completed. Inserted saline lock: 20 gauge la4 in right forearm, using aseptic technique. 03/19 01:00 CT Abd/Pelvis - IV Contrast Only In Process Unspecified. EDMS 02:05 José Luis Morrison MD is Referral Physician. sp4 03:03 IV discontinued, intact, bleeding controlled, No redness/swelling at site. Pressure la4 dressing applied. Administered Medications: 03/18 23:46 Drug: NS 0.9% IV 1000 ml IV at 1 bolus Per protocol; 1000 mL bolus Route: IV; Rate: 1 la4 bolus; Site: right forearm; 23:46 Drug: Ketorolac IVP 30 mg IVP once Route: IVP; Site: right forearm; la4 23:46 Drug: metoCLOPramide IVP 10 mg IVP once; over 1 to 2 minutes Route: IVP; Site: right la4 forearm; 03/19 02:07 Drug: traMADol PO 100 mg PO once Route: PO; la4 02:07 Drug: Promethazine PO 25 mg PO once Route: PO; la4 02:45 Not Given (Patient Refused): anusol-hcsuppository 25 mg 25 mg GA once la4 Medication: 03:02 VIS not applicable for this client. la4 Outcome: 02:06 Discharge ordered by MD. sp4 03:02 Discharged to home ambulatory, la4 03:02 Condition: stable 03:02 Discharge instructions given to patient, Instructed on discharge instructions, follow up and referral plans. medication usage, Demonstrated understanding of instructions, follow-up care, Prescriptions given X 3, 03:03 Patient left the ED. la4 Signatures: Dispatcher [employer] EDNH Avril Morris RN RN hb Malena Beebe Sergey, MD MD sp4 Vane Carlson RN RN km8 Rober Arroyo RN RN la4 Corrections: (The following items were deleted from the chart) 03/18 23:13 23:10 Chief complaint: Severe hemorrhoid pain that started yesterday. hb hb
--- NOTE | 2023-03-19 02:06 | EDPHYS ---
Physician Documentation [facility] Name: Jon Quinones Age: 63 yrs Sex: Male : 1960 Arrival Date: 03/18/2023 Time: 22:57 Bed 6 Private MD: ED Physician Paul Grey HPI: 03/18 23:02 This 63 yrs old Male presents to ER via Unassigned with complaints of sp4 Hemorrhoids. 03/19 01:16 Patient presents with several months of worsening anal pain and symptoms of bleeding sp4 and also history of official diagnosis of hemorrhoids. . 02:03 Patient states that he has been known about fibroids for years but they became really sp4 painful this evening and patient presented to the ER with worsening pain and swelling. . Historical: - Allergies: 03/18 23:12 No Known Allergies; hb - Home Meds: 23:12 unknown BP medication [Active]; hb - PMHx: 23:12 Hypertensive disorder; hb - Immunization history:: Adult Immunizations up to date. - Social history:: Smoking status: Patient denies any tobacco usage or history of. - Family history:: not pertinent. ROS: 03/19 01:56 Constitutional: Negative for fever, chills, and weight loss, rectal and anal pain and sp4 swollen in the rectal hemorrhoids All other systems are negative, Exam: 02:03 Constitutional: This is a well developed, well nourished patient who is awake, alert, sp4 and in no acute distress. Head/Face: Normocephalic, atraumatic. Eyes: Pupils equal round and reactive to light, extra-ocular motions intact. Lids and lashes normal. Conjunctiva and sclera are not injected. Cornea within normal limits. Periorbital areas with no swelling, redness, or edema. ENT: Nares patent. No nasal discharge, no septal abnormalities noted. Tympanic membranes are normal and external auditory canals are clear. Oropharynx with no redness, swelling, or masses, exudates, or evidence of obstruction, uvula midline. Mucous membranes moist. Neck: Trachea midline, no thyromegaly or masses palpated, and no cervical lymphadenopathy. Supple, full range of motion without nuchal rigidity, or vertebral point tenderness. Chest/axilla: Normal chest wall appearance and motion. Nontender with no deformity. No lesions are appreciated. Cardiovascular: Regular rate and rhythm with a normal S1 and S2. No gallops, murmurs, or rubs. Normal PMI, no JVD. No pulse deficits. Respiratory: Lungs have equal breath sounds bilaterally, clear to auscultation and percussion. No rales, rhonchi or wheezes noted. No increased work of breathing, no retractions or nasal flaring. Abdomen/GI: Soft, non-tender, with normal bowel sounds. No distension or tympany. No guarding or rebound. No evidence of tenderness throughout. Back: No spinal tenderness. No costovertebral tenderness. Skin: Warm, dry with normal turgor. Normal color with no rashes, no lesions, and no evidence of cellulitis. MS/ Extremity: Pulses equal, no cyanosis. Neurovascular intact. Full, normal range of motion. Neuro: Awake and alert, GCS 15, oriented to person, place, time, and situation. Cranial nerves II-XII grossly intact. Motor strength 5/5 in all extremities. Sensory grossly intact. Psych: Awake, alert, with orientation to person, place and time. Behavior, mood, and affect are within normal limits Vital Signs: 03/18 23:10 BP 147 / 107; Pulse 105; Resp 16; Temp 99.6(TE); Pulse Ox 99% on R/A; Weight 83.91 kg; hb Height 5 ft. 11 in. ; Pain 10/10; 23:56 BP 150 / 104; Pulse 22; Resp 88; Pulse Ox 100% on R/A; Pain 10/10; la4 03/19 00:21 BP 163 / 113; Pulse 84; Resp 16; Pulse Ox 98% on R/A; km8 03/18 23:10 Body Mass Index 25.80 (83.91 kg, 180.34 cm) hb 03/18 23:10 Pain Scale: Adult hb 23:56 Pain Scale: Adult la4 03/18 23:56 c/o rectal pain la4 Navi Coma Score: 23:56 Eye Response: spontaneous(4). Motor Response: obeys commands(6). Verbal Response: la4 oriented(5). Total: 15. MDM: 03/19 00:49 Patient medically screened. sp4 01:57 ED course: CT - COMPARISON: No relevant prior studies available. FINDINGS: Lung bases: sp4 Unremarkable. No mass. No consolidation. ABDOMEN: Liver: Unremarkable. No mass. Gallbladder and bile ducts: Unremarkable. No calcified stones. No ductal dilation. Pancreas: Unremarkable. No mass. No ductal dilation. Spleen: Unremarkable. No splenomegaly. Adrenals: Unremarkable. No mass. Kidneys and ureters: Normal renal cortical enhancement bilaterally. Small right renal calculus. No hydronephrosis. Stomach and bowel: Thickened appearance of the anorectal junction. No obstruction. PELVIS: Appendix: Normal caliber appendix. No findings to suggest acute appendicitis. Bladder: The urinary bladder is mildly distended. Reproductive: The prostate is enlarged. ABDOMEN and PELVIS: Intraperitoneal space: Unremarkable. No free air. No significant fluid collection. Bones/joints: Multilevel spondylosis most pronounced, moderate to severe at L5-S1. No acute fracture. No dislocation. Soft tissues: Unremarkable. Vasculature: Moderate to severe atherosclerotic disease. The abdominal aorta measures 2.8 cm in maximum diameter. No abdominal aortic aneurysm. Lymph nodes: Unremarkable. No enlarged lymph nodes. IMPRESSION: 1. Thickened appearance of the anorectal junction. This may in part be related to hemorrhoids in combination with nonspecific proctitis. Direct visualization may be necessary in order to exclude underlying mass/malignancy. 2. Other findings as above. Electronically signed by: Flaco Larsen MD 03/19/2023 1:43 AM. 02:03 Differential Diagnosis altered mental status, sepsis, flu. Data reviewed: vital signs, sp4 nurses notes, old medical records, lab test result(s), radiologic studies, CT scan. Consideration of Admission/Observation Escalation of care including admission/observation considered. ED course: Patient advised to see a general surgeon for evaluation for hemorrhoidectomy. . 03/18 23:24 Order name: CBC with Diff; Complete Time: 01:58 sp4 03/18 23:24 Order name: CMP; Complete Time: 01:58 sp4 03/18 23:24 Order name: CT Abd/Pelvis - IV Contrast Only sp4 03/18 23:25 Order name: Saline Lock; Complete Time: 23:46 sp4 Administered Medications: 03/18 23:46 Drug: NS 0.9% IV 1000 ml IV at 1 bolus Per protocol; 1000 mL bolus Route: IV; Rate: 1 la4 bolus; Site: right forearm; 23:46 Drug: Ketorolac IVP 30 mg IVP once Route: IVP; Site: right forearm; la4 23:46 Drug: metoCLOPramide IVP 10 mg IVP once; over 1 to 2 minutes Route: IVP; Site: right la4 forearm; 03/19 02:07 Drug: traMADol PO 100 mg PO once Route: PO; la4 02:07 Drug: Promethazine PO 25 mg PO once Route: PO; la4 02:45 Not Given (Patient Refused): anusol-hcsuppository 25 mg 25 mg AR once la4 Disposition Summary: 03/19/23 02:06 Discharge Ordered Notes: Please see general Surgeon for hemorrhoidectomy Location: Home sp4 Problem: new sp4 Symptoms: have improved sp4 Condition: Stable sp4 Diagnosis - Unspecified hemorrhoids sp4 - external hemorrhoids sp4 - Anal and rectal pain secondary to hemorrhoids sp4 Followup: sp4 - With: José Luis Morrison MD - When: 7 - 10 days - Reason: Recheck today's complaints Discharge Instructions: - Discharge Summary Sheet sp4 - Hemorrhoids, [id number] sp4 Forms: - Patient Portal Instructions sp4 Prescriptions: - Ibuprofen 800 mg Oral Tablet - take 1 tablet ORAL route every 8 hours As needed take with food; 30 tablet; sp4 Refills: 0, Product Selection Permitted - Tramadol 50 mg Oral tablet - take 1 tablet ORAL route every 8 hours PRN pain; 20 tablet; Refills: 0, Product sp4 Selection Permitted - Anusol-HC 25 mg Rectal suppository - insert 1 suppository RECTAL route every 12 hours As needed; 40 suppository; sp4 Refills: 0, Product Selection Permitted - promethazine 25 mg Oral Tablet - take 1 tablet ORAL route every 6 hours As needed; 20 tablet; Refills: 0, sp4 Product Selection Permitted Signatures: Dispatcher [employer] Avril Sun RN RN hb Potepalov, Sergey, MD MD sp4 Rober Arroyo RN RN la4
[2023-03-19] MEDS ORDERED: TRAMADOL HCL 50 MG TAB ONE (02:18)
[2023-03-19] MEDS ORDERED: PROMETHAZINE 25 MG TABLET ONE (02:18)
[2023-03-19] MEDS ORDERED: HYDROCORTISONE ACETATE 25MG SUPP PR ONE (02:35)
[2023-03-19 03:21] VITALS: TEMP 99.6
[2023-03-19 03:28] VITALS: BP 163/113; O2SAT 98
--- NOTE | 2023-03-19 13:01 | RAD REPORT ---
EXAM DESCRIPTION: CT Abdomen and Pelvis With Intravenous Contrast CLINICAL HISTORY: Rectal pain TECHNIQUE: Axial computed tomography images of the abdomen and pelvis with intravenous contrast. S agittal and coronal reformatted images were created and reviewed. This CT exam was performed using one or more of the following dose reduction techniques: automated exposure control, adjustment of t he mA and/or kV according to patient size, and/or use of iterative reconstruction technique. COMPARISON: No relevant prior studies available. FINDINGS: Lung bases: Unremarkable. No mass. No consolidation. ABDOMEN: Liver: Unremarkable. No mass. Gallbladder and bile ducts: Unremarkable. No calcified stones. No ductal dilation. Pancreas: Unremarkable. No mass. No ductal dilation. Spleen: Unremarkable. No splenomegaly. Adrenals: Unremarkable. No mass. Kidneys and ureters: Normal renal cortical enhancement bilaterally. Small right renal calculus. No hydronephrosis. Stomach and bowel: Thickened appearance of the anorectal junction. No obstruction. PELVIS: Appendix: Normal caliber appendix. No findings to suggest acute appendicitis. Bladder: The urinary bladder is mildly distended. Reproductive: The prostate is enlarged. ABDOMEN and PELVIS: Intraperitoneal space: Unremarkable. No free air. No significant fluid collection. Bones/joints: Multilevel spondylosis most pronounced, moderate to severe at L5-S1. No acute fract ure. No dislocation. Soft tissues: Unremarkable. Vasculature: Moderate to severe atherosclerotic disease. The abdominal aorta measures 2.8 cm in m aximum diameter. No abdominal aortic aneurysm. Lymph nodes: Unremarkable. No enlarged lymph nodes. IMPRESSION: 1. Thickened appearance of the anorectal junction. This may in part be related to he morrhoids in combination with nonspecific proctitis. Direct visualization may be necessary in order to exclude underlying mass/malignancy. 2. Other findings as above. Electronically signed by: Flaco Larsen MD 03/19/2023 1:43 AM [employer]GICAL [employer] Due to temporary technical issues with the PACS/Fluency reporting system, reports are being signed by the in house radiologist without review as a courtesy to ensure prompt reporting. The interpreting r adiologist is fully responsible for the content of the report.
== END 2023-03-19 03:03 | disposition home or self-care (01) ==
LOC: ER 22:57
DX: K64.4 Residual hemorrhoidal skin tags (principal)
CPT/HCPCS: 85025; 36415; 80053; 74177; 96375; 96374; 99284; Q9967; Q0169; J2765; J7030

== ENCOUNTER 2023-03-22 10:43 | Day surgery (SDC) | payer BC ==
[2023-03-22] MEDS ORDERED: Ringers Lactate 1,000 ML IV ONE (11:07)
[2023-03-22] MEDS ORDERED: propofoL 200 MG/20 ML VIAL IV ONE (11:39)
[2023-03-22] MEDS ORDERED: FENTANYL CITR 100 MCG/2 ML ONE (11:40)
[2023-03-22] MEDS ORDERED: dexAMETHasone 10 MG/ML VIAL ONE (11:40)
[2023-03-22] MEDS ORDERED: LIDOCAINE 2% MPF 5 ML VIAL ONE (11:40)
[2023-03-22] MEDS ORDERED: MIDAZOLAM HCL 2 MG/2 ML INJ ONE (11:40)
[2023-03-22] MEDS ORDERED: ONDANSETRON 4 MG/2 ML VIAL ONE (11:40)
[2023-03-22] MEDS ORDERED: KETOROLAC 30 MG/ML INJ ONE (11:41)
[2023-03-22] MEDS: CEFAZOLIN SODIUM 1 GM/VIAL ONE ×2 (12:50→13:07)
[2023-03-22] MEDS: LIDOCAINE HCL/EPINEPHRINE 20 ML MDV ONE ×4 (12:50→13:35)
[2023-03-22] MEDS ORDERED: KETAMINE HCL IN 0.9 % NACL 50 MG/5 ML SYRINGE IV ONE (13:34)
--- NOTE | 2023-03-22 14:19 | P.OP ---
Preoperative diagnosis: Internal Grade IV / External Anal Hemorrhoids Postoperative diagnosis: Internal Grade IV / External Anal Hemorrhoids Primary procedure: Exam under anesthesia Secondary procedure: Hemorrhoidectomy Anesthesia: GETA + Local Estimated blood loss: <20cc Specimen: Hemorrhoids Findings: Large Internal Grade IV / External Anal Hemorrhoids Complications: None Transferred to: Recovery Room Condition: Good
[2023-03-22 15:17] VITALS: TEMP 98.8; O2SAT 99
[2023-03-22 16:03] VITALS: BP 143/79
--- NOTE | 2023-03-22 18:15 | OP ---
Date of Procedure: 03/22/2023 Surgeon: José Luis Morrison MD, Preoperative Diagnosis: Internal grade 4 internal hemorrhoids as well as external anal hemorrhoids. Postoperative Diagnosis: Internal grade 4 internal hemorrhoids as well as external anal hemorrhoids. Procedures Performed: 1.Exam under anesthesia. 2.Hemorrhoidectomy. Anesthesia: General endotracheal plus local with 1% lidocaine with epinephrine. Estimated Blood Loss: Less than 20 cc. Specimen: Hemorrhoids. Findings: Large internal grade 4 hemorrhoids of all 3 columns and external anal hemorrhoids, signifi cant swelling, thrombosis to the hemorrhoids causing partial anal stenosis. Complications: None. Disposition: The patient was transferred to recovery room in good condition. Procedure In Detail: After informed consent was obtained, the patient was brought to the operating r oom, prepped and draped in the usual sterile fashion. After adequate anesthesia achieved, I did a di gital rectal examination, but large external thrombosed anal hemorrhoids were noted in all 3 columns. These were bleeding at the time of examination. I then placed an anoscope into the anal canal and noted these were grade 4 internal hemorrhoids as well as external anal hemorrhoids. I began by opal cating the area of the hemorrhoids in 1 column at a time using electrocautery down to the subcutaneou s tissues using a blade down into the subcutaneous tissues. I then dissected free any muscular tissu e away from the hemorrhoid tissue and used the LigaSure to ligate these hemorrhoids extending into th e anal canal and sent them off for pathologic examination. After all 3 columns were removed, I then irrigated the area copiously. I reapproximated the mucosa to the external anal skin using interrupte d 3-0 chromic sutures with good approximation of tissues. No hemostatic measures required at the end of the procedure. The area was copiously irrigated. I then placed a damp Gelfoam into the anal can al for additional hemostasis. The patient tolerated the procedure well without evidence of complicat ion and was transferred to PACU in good condition. All counts were correct at the end of the case. ALFA/LOUISE Voice ID: [id number] Report ID: [id number]
== END 2023-03-22 15:50 | disposition home or self-care (01) ==
LOC: OR 10:43
PROVIDERS: ATTEND Surgery
PROC: 06BY4ZC Excision of Hemorrhoidal Plexus, Percutaneous Endoscopic Approach (ICD-10-PCS; principal; 2023-03-22 12:00)
DX: K64.3 Fourth degree hemorrhoids (principal); K64.9 Unspecified hemorrhoids
CPT/HCPCS: 93005; 88304; 46260; J2704; J2001; J2250; J3010; J1100; J2405; J7120; J0690